=== PATIENT | male | born 1975 | race Asian ===

== ENCOUNTER → 2020-06-23 | Outpatient (CLI) | payer MEDICARE, OTHER ==
[~2020-06-23] MED LIST: AMLO-257 PO; BENZ1TAB10 PO; CLON-595 PO; DIVA250T4 PO; HALO5TAB23 PO
== END | disposition home or self-care (01) ==
LOC: LABMN 12:49
PROVIDERS: ATTEND Psychiatry & Neurology Psychiatry
DX: F25.0 Schizoaffective disorder, bipolar type (principal)
CPT/HCPCS: 80164

== ENCOUNTER 2024-02-22 12:57 | Inpatient (IN) | payer MEDICARE, MEDICAID ==
[~2024-02-22] VITALS: Ht 165.1 cm; Wt 63.0 kg
[~2024-02-22 12:57] MED LIST changes: -BENZ1TAB10 PO; +BUPR-49 PO; -CLON-595 PO; +DIVA-153 PO; -DIVA250T4 PO; -HALO5TAB23 PO; +MELA5TAB40 PO; +NALT50TA6 PO; +OLAN10TA26 PO; +OMEG-135 PO
[2024-02-22] MEDS ORDERED: ZOLPIDEM TARTRATE 10 MG TABLET PO PRN (15:15)
[2024-02-22] MEDS ORDERED: HydrOXYzine PAMOATE 25 MG CAPSULE PO PRN (15:30)
[2024-02-22 15:56] LABS: GLUCOMETER DEV NAME(LOC) POC.BV; POC SARS-COV2 AG, FIA NEGATIVE (NEGATIVE)
[2024-02-22] MEDS ORDERED: PALI156D IM (15:59)
[2024-02-22] MEDS ORDERED: PALI234D IM (17:04)
[2024-02-22] MEDS ORDERED: OLAN10TA74 PO (17:04)
[2024-02-22] MEDS: GABAPENTIN 400 MG CAPSULE PO SCH (17:32)
[2024-02-22 20:00] VITALS: BP 140/74; PULSE 87; RESP 18; TEMP 98; O2SAT 94
[2024-02-22] MEDS: MELATONIN 5 MG TABLET PO SCH (21:00)
[2024-02-22] MEDS: OLANZapine 10 MG TABLET PO SCH (21:00)
[2024-02-23 15:43] VITALS: BP 120/80; PULSE 80; RESP 18; TEMP 97.6; O2SAT 95
[2024-02-23] MEDS ORDERED: MAG HYDROX/ALUMINUM HYD/SIMETH ES 30 ML SUSPENSION UDCUP PO PRN (16:30)
[2024-02-23] MEDS ORDERED: LOPERAMIDE HCL 2 MG CAPSULE PO PRN (16:30)
[2024-02-23] MEDS ORDERED: BENZOCAINE/MENTHOL LOZENGE PO PRN (16:30)
[2024-02-23] MEDS ORDERED: ACETAMINOPHEN 325 MG TABLET PO PRN (16:30)
[2024-02-23] MEDS ORDERED: ONDANSETRON 4 MG TABLET PO PRN (16:30)
[2024-02-23] MEDS ORDERED: CloNIDine HCL 0.1 MG TABLET PO PRN (16:30)
[2024-02-23] MEDS ORDERED: PETROLATUM,WHITE 28 GM JELLY TP PRN (16:30)
[2024-02-23] MEDS ORDERED: OMEPRAZOLE 20 MG CAPSULE PO PRN (16:30)
[2024-02-23] MEDS ORDERED: DOCUSATE SODIUM 100 MG CAPSULE PO PRN (16:30)
[2024-02-23] MEDS ORDERED: MAGNESIUM HYDROXIDE SUSPENSION 30 ML UDCUP PO PRN (16:30)
[2024-02-23] MEDS ORDERED: IBUPROFEN 600 MG TABLET PO PRN (16:30)
[2024-02-23] MEDS ORDERED: ALBUTEROL SULFATE HFA 90 MCG/PUFF 8 GM INHALER IH PRN (16:30)
[2024-02-23] MEDS ORDERED: BACITRACIN 28 GM OINTMENT TP PRN (16:30)
[2024-02-23 20:36] VITALS: BP 125/74; PULSE 87; RESP 18; TEMP 98.1; O2SAT 98
[2024-02-23] MEDS: ChlorproMAZINE HCL 100 MG TABLET PO PRN (21:51)
[2024-02-23] MEDS: ZOLPIDEM TARTRATE 5 MG TABLET PO PRN (21:51)
[2024-02-24 08:51] LABS: EOSINOPHILS % (AUTO) 3.2 % (1.0-6.0); HEMATOCRIT 42.9 % (41-53); HEMOGLOBIN 13.7 g/dL (13.5-17.5); LYMPHOCYTES # (AUTO) 1.4 K/uL (1.0-4.8); LYMPHOCYTES % (AUTO) 39.4 % (22.0-44.0); MEAN CORPUSCULAR HEMOGLOBIN 24.1 pg (26.0-34.0); MEAN CORPUSCULAR HGB CONC 31.9 G/dL (31.0-37.0); MEAN CORPUSCULAR VOLUME 75 fL (80-100); MONOCYTES # (AUTO) 0.4 K/uL (0.1-1.0); MONOCYTES % (AUTO) 10.2 % (2.0-9.0); NEUTROPHILS # (AUTO) 1.6 K/uL (1.8-7.7); NEUTROPHILS % (AUTO) 46.2 % (40.0-70.0); PLATELET COUNT (AUTO) 194 K/uL (150-450); RED BLOOD CELL COUNT(AUTO) 5.68 MIL/uL (4.50-5.90); RED CELL DISTRIBUTION WIDTH 14.1 % (11.5-14.5); WHITE BLOOD COUNT (AUTO) 3.5 K/uL (4.5-11.0)
[2024-02-24 08:59] LABS: ALCOHOL, BLOOD (SERUM) < 3 mg/dL (0-10)
[2024-02-24 09:00] VITALS: BP 128/80; PULSE 82; RESP 16; TEMP 98.1; O2SAT 95
[2024-02-24] MEDS: AmLODIPine BESYLATE 5 MG TABLET PO SCH (09:00)
[2024-02-24 09:09] LABS: HEMOGLOBIN A1C 5.4 % (3.8-5.6)
[2024-02-24 09:12] LABS: ALANINE AMINOTRANSFERASE 19 U/L (12-78); ALBUMIN 3.3 g/dL (3.4-5.0); ALKALINE PHOSPHATASE 90 U/L (46-116); ANION GAP 3 mmol/L (8-16); ASPARTATE AMINOTRANSFERASE 18 U/L (15-37); BILIRUBIN,TOTAL 0.3 mg/dL (0.1-1.0); CALCIUM, TOTAL 8.7 mg/dL (8.8-10.5); CARBON DIOXIDE 33 mmol/L (22-29); CHLORIDE 107 mmol/L (98-107); CHOL/HDL RATIO 2.7 (4.2-7.3); CHOLESTEROL 170 mg/dL (131-200); CREATININE 0.92 mg/dL (0.60-1.30); FREE T4 (FREE THYROXINE) 1.03 ng/dL (0.76-1.46); GLOMERULAR FILTR. RATE CALC > 60 mL/min (>60); GLUCOSE,RANDOM 84 mg/dL (70-110); HDL CHOLESTEROL 62 mg/dL (40-60); LDL CHOL (CALC.) 99 mg/dL (0-130); POTASSIUM 4.8 mmol/L (3.5-5.1); SODIUM SERUM 143 mmol/L (136-145); T4 (THYROXINE) 9.2 mcg/dL (4.7-13.3); THYROID STIMULATING HORMONE 0.71 uIU/mL (0.36-3.74); TOTAL PROTEIN, SERUM 6.6 g/dL (6.4-8.2); TRIGLYCERIDES 44 mg/dL (15-150); UREA NITROGEN, BLOOD 18 mg/dL (7-18)
[2024-02-24 09:48] LABS: RBC MORPHOLOGY COMMENT ABNORMAL RBC MORPH
[2024-02-24] MEDS: PALIPERIDONE PALMITATE 234 MG/1.5 ML SYRINGE IM ONE (15:32)
[2024-02-24 18:43] VITALS: RESP 18
[2024-02-24 20:23] VITALS: BP 127/77; PULSE 84; RESP 17; TEMP 97.3; O2SAT 94
[2024-02-24] MEDS: OLANZapine 10 MG TABLET PO SCH (20:40)
[2024-02-24] MEDS: DIVALPROEX SODIUM 500 MG ER TABLET PO SCH (20:40)
[2024-02-25] MEDS: NALTREXONE HCL 50 MG TABLET PO SCH (08:49)
[2024-02-25 12:03] VITALS: RESP 18
[2024-02-25 20:18] VITALS: BP 135/76; PULSE 97; RESP 17; TEMP 97.6; O2SAT 96
[2024-02-26 08:31] VITALS: BP 121/80; PULSE 96; RESP 16; TEMP 98.7; O2SAT 96
[2024-02-26 23:21] VITALS: BP 120/77; PULSE 96; RESP 17; TEMP 98.4; O2SAT 96
[2024-02-27 08:43] VITALS: BP 123/72; PULSE 82; RESP 17; TEMP 97.5; O2SAT 98
[2024-02-27] MEDS: OLANZapine 10 MG TABLET PO SCH (20:13)
[2024-02-28 09:20] VITALS: BP 114/74; PULSE 82; RESP 16; TEMP 98.1; O2SAT 98
[2024-02-28] MEDS: PALIPERIDONE PALMITATE 156 MG/ML SYRINGE IM ONE (13:28)
[2024-02-28] MEDS: INFLUENZA VIRUS VACCINE TVS (6MO+) 2024-25/PF 45 MCG/0.5 ML SYRINGE IM. ONE (13:36)
[2024-02-28] MEDS: PNEUMOCOCCAL VACCINE POLYVALENT 0.5 ML SYRINGE [PPSV23] IM. ONE (13:37)
[2024-02-28 20:33] VITALS: BP 124/80; PULSE 95; RESP 16; TEMP 98.3; O2SAT 96
[2024-02-29 10:25] VITALS: BP 134/75; PULSE 89; RESP 16; TEMP 98.2; O2SAT 98
[2024-02-29 20:00] VITALS: BP 129/76; PULSE 83; RESP 17; TEMP 97.8; O2SAT 97
[2024-03-01 08:55] VITALS: BP 127/78; PULSE 90; RESP 17; TEMP 98.7; O2SAT 100
[2024-03-02 10:14] VITALS: BP 131/78; PULSE 80; RESP 18; TEMP 97.7; O2SAT 98
[2024-03-02 20:31] VITALS: BP 105/63; PULSE 93; RESP 16; TEMP 98.5; O2SAT 98
[2024-03-03 17:18] VITALS: BP 125/85; PULSE 89; RESP 16; TEMP 97.7; O2SAT 97
[2024-03-03 20:29] VITALS: BP 131/78; PULSE 91; RESP 18; TEMP 98.4
[2024-03-04 14:29] VITALS: BP 147/88; PULSE 91; RESP 18; TEMP 96.8; O2SAT 97
[2024-03-04 20:36] VITALS: BP 115/61; PULSE 84; RESP 18; TEMP 97.8; O2SAT 98
[2024-03-05 08:06] VITALS: BP 123/75; PULSE 79; RESP 16; TEMP 98.1; O2SAT 98
[2024-03-05 21:01] VITALS: BP 113/76; PULSE 85; RESP 17; TEMP 97; O2SAT 95
[2024-03-06 08:19] VITALS: BP 121/67; PULSE 84; RESP 18; TEMP 97.7; O2SAT 96
[2024-03-06 20:19] VITALS: BP 104/77; PULSE 95; RESP 16; TEMP 97.8; O2SAT 97
[2024-03-07 08:30] VITALS: BP 130/73; PULSE 85; RESP 16; TEMP 97.7; O2SAT 99
[2024-03-07] MEDS: OLANZapine 5 MG RAPDIS TABLET PO PRN (20:32)
[2024-03-07 20:38] VITALS: BP 111/90; PULSE 97; RESP 18; TEMP 98; O2SAT 96
[2024-03-08 08:30] VITALS: BP 135/88; PULSE 83; RESP 18; TEMP 97.6; O2SAT 100
[2024-03-08 20:02] VITALS: BP 133/84; PULSE 92; RESP 16; TEMP 98.5; O2SAT 99
[2024-03-09 08:03] VITALS: BP 120/72; PULSE 86; RESP 18; TEMP 98.3; O2SAT 96
[2024-03-09 20:17] VITALS: BP 122/80; PULSE 95; RESP 18; TEMP 98.4; O2SAT 98
[2024-03-10 08:07] VITALS: BP 134/93; PULSE 89; RESP 17; TEMP 98.6; O2SAT 98
[2024-03-10 20:19] VITALS: BP 122/84; PULSE 96; RESP 16; TEMP 98.7; O2SAT 96
[2024-03-11 08:03] VITALS: BP 116/59; PULSE 87; RESP 17; TEMP 98.5; O2SAT 96
[2024-03-11 09:50] LABS: APPEARANCE,URINE CLEAR (CLEAR); BILIRUBIN,URINE NEGATIVE (NEGATIVE); COLOR,URINE LIGHT YELLOW (YELLOW); GLUCOSE, URINE (UA) NEGATIVE (NEGATIVE); KETONES,URINE NEGATIVE (NEGATIVE); LEUKOCYTE ESTERASE ,URINE NEGATIVE (NEGATIVE); NITRATE,URINE NEGATIVE (NEGATIVE); OCCULT BLOOD,URINE NEGATIVE (NEGATIVE); PROTEIN,URINE NEGATIVE (NEGATIVE); SPECIFIC GRAVITIY, URINE 1.019 (1.003-1.030); UROBILINOGEN,URINE <=1.0 mg/dL (<=1.0)
[2024-03-11 09:59] LABS: ALCOHOL, URINE DRUG SCREEN NEGATIVE (NEGATIVE); AMPHET/METH SCREEN,URINE NEGATIVE (NEGATIVE); BARBITURATE SCREEN, URINE NEGATIVE (NEGATIVE); BENZODIAZEPINES SCREEN,URINE NEGATIVE (NEGATIVE); CANNABINOID SCREEN,URINE NEGATIVE (NEGATIVE); COCAINE SCREEN,URINE NEGATIVE (NEGATIVE); METHADONE SCREEN, URINE NEGATIVE (NEGATIVE); OPIATE SCREEN,URINE NEGATIVE (NEGATIVE); PHENCYCLIDINE SCREEN,URINE NEGATIVE (NEGATIVE)
[2024-03-11 20:05] VITALS: BP 124/69; PULSE 89; RESP 19; TEMP 98.7; O2SAT 96
[2024-03-12 08:17] VITALS: BP 120/78; PULSE 97; RESP 18; TEMP 98.1; O2SAT 97
[2024-03-12 20:25] VITALS: BP 128/79; PULSE 87; RESP 18; TEMP 97.4; O2SAT 99
[2024-03-13 08:26] VITALS: BP 122/75; PULSE 72; RESP 18; TEMP 97.7; O2SAT 96
[2024-03-13 21:17] VITALS: BP 128/86; PULSE 85; RESP 18; TEMP 98.3; O2SAT 99
[2024-03-14 07:50] VITALS: BP 139/79; PULSE 79; RESP 18; TEMP 97.2; O2SAT 97
[2024-03-14 20:00] VITALS: BP 135/79; PULSE 77; RESP 17; TEMP 98.8; O2SAT 95
[2024-03-15 08:01] VITALS: BP 127/83; PULSE 76; RESP 16; TEMP 98.7; O2SAT 98
[2024-03-15 20:16] VITALS: BP 97/60; PULSE 91; RESP 18; TEMP 97.8; O2SAT 98
[2024-03-16 08:03] VITALS: BP 113/56; PULSE 86; RESP 17; TEMP 91.7; O2SAT 97
[2024-03-16 22:04] VITALS: BP 126/86; PULSE 90; RESP 18; TEMP 97.5; O2SAT 97
[2024-03-17 08:29] VITALS: BP 123/82; PULSE 69; RESP 18; TEMP 97.2
[2024-03-17] MEDS: HydrOXYzine PAMOATE 50 MG CAPSULE PO PRN (18:20)
[2024-03-17 20:08] VITALS: BP 134/80; PULSE 83; RESP 17; TEMP 97.5; O2SAT 98
[2024-03-18 08:08] VITALS: BP 130/82; PULSE 67; RESP 18; TEMP 97.9; O2SAT 98
[2024-03-18 20:07] VITALS: BP 127/92; PULSE 89; RESP 19; TEMP 97.5; O2SAT 98
[2024-03-19 08:15] VITALS: BP 127/83; PULSE 89; RESP 19; TEMP 97.9; O2SAT 97
[2024-03-19 20:13] VITALS: BP 120/75; PULSE 95; RESP 18; TEMP 98.1; O2SAT 97
[2024-03-20 08:11] VITALS: BP 131/86; PULSE 81; RESP 16; TEMP 97.5; O2SAT 98
[2024-03-20 20:11] VITALS: BP 103/61; PULSE 78; RESP 16; TEMP 97.1; O2SAT 96
[2024-03-21 08:10] VITALS: BP 135/85; PULSE 81; RESP 18; TEMP 97.6; O2SAT 98
[2024-03-21 20:43] VITALS: BP 137/76; PULSE 101; RESP 18; TEMP 97.3; O2SAT 98
[2024-03-22 08:14] VITALS: BP 116/75; PULSE 76; RESP 17; TEMP 95.7; O2SAT 89
[2024-03-22 22:38] VITALS: BP 116/77; PULSE 69; RESP 18; TEMP 98; O2SAT 98
[2024-03-23 14:59] VITALS: BP 115/78; PULSE 76; RESP 19; TEMP 97.7; O2SAT 97
[2024-03-23 20:11] VITALS: BP 106/68; PULSE 80; RESP 18; TEMP 97.3; O2SAT 98
[2024-03-24 08:00] VITALS: BP 130/87; RESP 16; O2SAT 95
[2024-03-24 20:15] VITALS: BP 107/73; PULSE 86; RESP 16; TEMP 98.1; O2SAT 98
[2024-03-25 08:20] VITALS: BP 115/82; PULSE 80; RESP 18; TEMP 97.4; O2SAT 97
[2024-03-25] MEDS: TUBERCULIN, PURIFIED PROTEIN DERIVATIVE 5 TU/0.1 ML SYRINGE ID ONE (10:33)
[2024-03-25 20:07] VITALS: BP 105/69; PULSE 83; RESP 18; TEMP 97.8; O2SAT 98
[2024-03-26 08:17] VITALS: BP 113/79; PULSE 85; RESP 18; TEMP 97.6; O2SAT 96
[2024-03-26] MEDS ORDERED: OLAN10TA74 PO (14:40)
[2024-03-26] MEDS ORDERED: PALI117D IM (14:40)
[2024-03-26] MEDS ORDERED: GABA-1201 PO (14:40)
[2024-03-26 20:00] VITALS: BP 112/62; PULSE 70; RESP 17; TEMP 97.4; O2SAT 96
[2024-03-27 08:20] VITALS: BP 127/63; PULSE 73; RESP 18; TEMP 96.5; O2SAT 96
[2024-03-27] MEDS: PALIPERIDONE PALMITATE 117 MG/0.75 ML SYRINGE IM SCH (15:34)
[2024-03-30] MEDS ORDERED: PALIPERIDONE PALMITATE 117 MG/0.75 ML SYRINGE IM SCH (09:00)
== END 2024-03-27 15:45 | disposition home or self-care (01) | DRG 885 ==
LOC: B2X 14:14
PROVIDERS: ADMIT Psychiatry & Neurology Psychiatry; ATTEND Psychiatry & Neurology Psychiatry
PROC: GZ56ZZZ Individual Psychotherapy, Supportive (ICD-10-PCS; principal; 2024-02-26)
DX: F25.0 Schizoaffective disorder, bipolar type (principal); F41.9 Anxiety disorder, unspecified; K59.00 Constipation, unspecified; G47.00 Insomnia, unspecified; I10 Essential (primary) hypertension; F15.90 Other stimulant use, unspecified, uncomplicated; Z20.822 Contact with and (suspected) exposure to COVID-19; Z91.148 Patient's other noncompliance with medication regimen for other reason; Z56.0 Unemployment, unspecified; Z72.0 Tobacco use
CPT/HCPCS: 80053; 80061; 80164; 80307; 81003; 83036; 84436; 84439; 84443; 85025; 86592; 87081; G0480